=== PATIENT | male | born 1970 | race African-American/Black ===

== ENCOUNTER 2019-04-04 20:53 | Inpatient (IN) | payer OTHER ==
[2019-04-04 21:28] LABS: ADD MAN DIFF? NO
[2019-04-04 21:30] LABS: WHITE BLOOD COUNT 6.6 10^3/ul (4.8-10.8)
[2019-04-04 21:30] LABS: ABNORMAL IP MESSAGE 1; BASOPHIL # 0.1 10^3/ul (0.0-0.1); BASOPHILS % 1.1 % (0.0-2.0); EOSINOPHILS % 0.3 % (0.0-7.0); HEMATOCRIT 53.1 % (42.0-52.0); HEMOGLOBIN 18.9 g/dl (14.0-18.0); LYMPHOCYTES # 1.6 10^3/ul (0.8-2.9); LYMPHOCYTES % 24.3 % (15.0-51.0); MEAN CORPUSCULAR HEMOGLOBIN 29.8 pg (29.0-33.0); MEAN CORPUSCULAR HGB CONC 35.6 g/dl (32.0-37.0); MEAN CORPUSCULAR VOLUME 83.6 fl (82.0-101.0); MEAN PLATELET VOLUME 10.2 fl (7.4-10.4); MONOCYTE # 1.5 10^3/ul (0.3-0.9); MONOCYTES % 23.1 % (0.0-11.0); NEUTROPHIL # 3.4 10^3/ul (1.6-7.5); NEUTROPHILS % 50.9 % (39.0-77.0); PLATELET COUNT 274 10^3/UL (140-415); POSITIVE DIFF @See below; RED BLOOD COUNT 6.35 10^6/ul (4.70-6.10); RED CELL DISTRIBUTION WIDTH 11.9 % (11.5-14.5)
[2019-04-04] MEDS: SODIUM CHLORIDE 0.9% 1L BAG IV* (21:43)
[2019-04-04] MEDS: ONDANSETRON 4 MG INJ IV (21:43)
[2019-04-04 21:50] LABS: INR 0.99; PROTIME 13.2 Sec (11.9-14.9)
[2019-04-04 21:51] LABS: PARTIAL THROMBOPLASTIN TIME 24.7 Sec (23.0-35.0)
[2019-04-04 21:58] LABS: ALANINE AMINOTRANSFERASE 56 IU/L (13-69); ALBUMIN 4.7 g/dl (3.3-4.9); ALKALINE PHOSPHATASE 72 IU/L (42-121); ANION GAP 14 (5-13); ASPARTATE AMINO TRANSFERASE 40 IU/L (15-46); BILIRUBIN,INDIRECT 1.6 mg/dl (0-1.1); BILIRUBIN,TOTAL 1.6 mg/dl (0.2-1.3); BLOOD UREA NITROGEN 20 mg/dl (7-20); CALCIUM 9.4 mg/dl (8.4-10.2); CARBON DIOXIDE 24 mmol/L (21-31); CHLORIDE 97 mmol/L (97-110); CREATININE 1.66 mg/dl (0.61-1.24); Estimated GFR 45 mL/min (>60); GLUCOSE 167 mg/dl (70-220); POTASSIUM 3.9 mmol/L (3.5-5.1); SODIUM 135 mmol/L (135-144); TOTAL PROTEIN 8.6 g/dl (6.1-8.1)
[2019-04-04] MEDS: PIPER-TAZO 3.375 GM IV (PMX) 100 ML IVPB (21:58)
[2019-04-04 22:07] LABS: TROPONIN-I < 0.012 ng/ml (0.000-0.120)
[2019-04-04] MEDS ORDERED: ACETAMINOPHEN 650 MG SUPP PR (23:30)
[2019-04-04] MEDS ORDERED: NACL 0.9% 3 ML SYG IV (23:30)
[2019-04-04] MEDS ORDERED: ONDANSETRON 4 MG INJ IV (23:30)
[2019-04-04] MEDS ORDERED: morphine 2 MG INJ IV (23:30)
[2019-04-04 23:32] LABS: URINE PH (Dip) POC 5.5 (5.0-8.5)
[2019-04-04 23:32] LABS: URINE BLOOD (Dip) POC Trace-lysed (NEGATIVE); URINE GLUCOSE (Dip) POC Negative (NEGATIVE); URINE KETONES (Dip) POC Negative (NEGATIVE); URINE LEUKOCYTE EST (Dip) POC Negative (NEGATIVE); URINE NITRITE (Dip) POC Negative (NEGATIVE); URINE TOTAL PROTEIN POC 1+ (NEGATIVE)
[2019-04-04 23:45] LABS: ADD UMIC YES; UR ASCORBIC ACID NEGATIVE (NEGATIVE); UR BILIRUBIN (Dip) NEGATIVE (NEGATIVE); UR BLOOD (Dip) 1+ mg/dL (NEGATIVE); UR CLARITY CLEAR (CLEAR); UR COLOR AMBER (YELLOW); UR GLUCOSE (Dip) NEGATIVE (NEGATIVE); UR KETONES (Dip) NEGATIVE (NEGATIVE); UR LEUKOCYTE ESTERASE (Dip) NEGATIVE Leu/ul (NEGATIVE); UR NITRITE (Dip) NEGATIVE (NEGATIVE); UR RBC 1 /HPF (0-5); UR SPECIFIC GRAVITY (Dip) 1.015 (1.003-1.030); UR TOTAL PROTEIN (Dip) NEGATIVE (NEGATIVE); UR UROBILINOGEN (Dip) NEGATIVE (NEGATIVE); UR WBC 2 /HPF (0-5)
[2019-04-05 01:01] LABS: LACTIC ACID 1.2 mmol/L (0.5-2.0)
[2019-04-05] MEDS: SOD CHLORIDE 0.9% 1,000 ML IV ×3 (01:34→22:29)
[2019-04-05 02:41] LABS: LACTIC ACID 1.1 mmol/L (0.5-2.0)
[2019-04-05 06:00] LABS: WHITE BLOOD COUNT 5.5 10^3/ul (4.8-10.8)
[2019-04-05 06:00] LABS: HEMATOCRIT 46.7 % (42.0-52.0); HEMOGLOBIN 16.4 g/dl (14.0-18.0); MEAN CORPUSCULAR HEMOGLOBIN 29.3 pg (29.0-33.0); MEAN CORPUSCULAR HGB CONC 35.1 g/dl (32.0-37.0); MEAN CORPUSCULAR VOLUME 83.5 fl (82.0-101.0); MEAN PLATELET VOLUME 10.3 fl (7.4-10.4); PLATELET COUNT 217 10^3/UL (140-415); POSITIVE DIFF @See below; RED BLOOD COUNT 5.59 10^6/ul (4.70-6.10); RED CELL DISTRIBUTION WIDTH 12.2 % (11.5-14.5)
[2019-04-05 06:23] LABS: HEMOGLOBIN A1C 5.5 % (0-5.9)
[2019-04-05 06:24] LABS: ADD MAN DIFF? YES
[2019-04-05 06:32] LABS: ALANINE AMINOTRANSFERASE 56 IU/L (13-69); ALBUMIN 3.7 g/dl (3.3-4.9); ALBUMIN/GLOBULIN RATIO 1.08; ALKALINE PHOSPHATASE 61 IU/L (42-121); ANION GAP 13 (5-13); ASPARTATE AMINO TRANSFERASE 37 IU/L (15-46); BILIRUBIN,INDIRECT 1.5 mg/dl (0-1.1); BILIRUBIN,TOTAL 2.4 mg/dl (0.2-1.3); BLOOD UREA NITROGEN 17 mg/dl (7-20); CARBON DIOXIDE 21 mmol/L (21-31); CHLORIDE 106 mmol/L (97-110); CREATININE 1.28 mg/dl (0.61-1.24); Estimated GFR > 60 mL/min (>60); GLUCOSE 115 mg/dl (70-220); POTASSIUM 3.5 mmol/L (3.5-5.1); SODIUM 140 mmol/L (135-144); TOTAL PROTEIN 7.1 g/dl (6.1-8.1)
[2019-04-05 09:20] LABS: OCCULT BLOOD STOOL NEGATIVE (NEGATIVE)
[2019-04-05] MEDS: FAMOTIDINE 20 MG INJ IV ×2 (10:02→20:32)
[2019-04-05] MEDS: ENOXAPARIN 30 MG/0.3 ML SYG SC (10:05)
[2019-04-05 10:23] LABS: BAND NEUTROPHILS #M 1.5 10^3/ul (0.0-0.6); BAND NEUTROPHILS % (M) 29 % (0-4); EOSINOPHILS % (M) 4 % (0-7); GIANT THROMBO% (M) 2 % (0-0); LYMPHOCYTES #M 1.4 10^3/ul (0.8-2.9); LYMPHOCYTES % (M) 26 % (15-51); MONOCYTE #M 1.4 10^3/ul (0.3-0.9); MONOCYTES % (M) 26 % (0-11); PLATELET ESTIMATE NORMAL; POLYCHROMASIA 1+ (0-0); PROMYELOCYTES % (M) 1 % (0-0); REACTIVE LYMPHOCYTES #M 0.1 10^3/ul (0.0-0.0); REACTIVE LYMPHOCYTES% (M) 3 % (0-0); SEG NEUT #M 0.6 10^3/ul (1.6-7.5); SEGMENTED NEUTROPHILS (M) % 10 % (39-77); SMUDGE%M 5 % (0-0); TEAR DROP CELLS 2+ (0-0)
[2019-04-05] MEDS: PIPER-TAZO 3.375 GM IV (PMX) 100 ML IVPB ×2 (13:22→22:29)
[2019-04-06] MEDS: PIPER-TAZO 3.375 GM IV (PMX) 100 ML IVPB ×3 (06:14→21:42)
[2019-04-06] MEDS: SOD CHLORIDE 0.9% 1,000 ML IV ×3 (07:39→20:37)
[2019-04-06 08:21] LABS: ALANINE AMINOTRANSFERASE 71 IU/L (13-69); ALBUMIN 4.1 g/dl (3.3-4.9); ALKALINE PHOSPHATASE 67 IU/L (42-121); ANION GAP 11 (5-13); ASPARTATE AMINO TRANSFERASE 47 IU/L (15-46); BILIRUBIN,INDIRECT 1.3 mg/dl (0-1.1); BILIRUBIN,TOTAL 1.4 mg/dl (0.2-1.3); BLOOD UREA NITROGEN 15 mg/dl (7-20); CALCIUM 8.7 mg/dl (8.4-10.2); CARBON DIOXIDE 24 mmol/L (21-31); CHLORIDE 102 mmol/L (97-110); CREATININE 1.39 mg/dl (0.61-1.24); Estimated GFR > 60 mL/min (>60); GLUCOSE 119 mg/dl (70-220); POTASSIUM 3.1 mmol/L (3.5-5.1); SODIUM 137 mmol/L (135-144); TOTAL PROTEIN 7.5 g/dl (6.1-8.1)
[2019-04-06] MEDS: ENOXAPARIN 30 MG/0.3 ML SYG SC (09:00)
[2019-04-06] MEDS: FAMOTIDINE 20 MG INJ IV ×2 (09:24→20:22)
[2019-04-06] MEDS: POTASSIUM CHLORIDE 20 MEQ POWDER FOR ORAL SOLN PO (20:21)
[2019-04-07] MEDS: SOD CHLORIDE 0.9% 1,000 ML IV ×2 (01:30→09:42)
[2019-04-07 05:55] LABS: ANION GAP 7 (5-13); BLOOD UREA NITROGEN 11 mg/dl (7-20); CALCIUM 8.1 mg/dl (8.4-10.2); CARBON DIOXIDE 24 mmol/L (21-31); CHLORIDE 105 mmol/L (97-110); Estimated GFR > 60 mL/min (>60); GLUCOSE 103 mg/dl (70-220); POTASSIUM 3.6 mmol/L (3.5-5.1); SODIUM 136 mmol/L (135-144)
[2019-04-07] MEDS: PIPER-TAZO 3.375 GM IV (PMX) 100 ML IVPB (06:03)
[2019-04-07] MEDS: ENOXAPARIN 30 MG/0.3 ML SYG SC (09:00)
[2019-04-07] MEDS: FAMOTIDINE 20 MG INJ IV (09:42)
== END 2019-04-07 14:45 | disposition home or self-care (01) | DRG 389 ==
LOC: PP2 23:30 → E/R 20:53
PROVIDERS: Internal Medicine
DX: K56.609 Unspecified intestinal obstruction, unspecified as to partial versus complete obstruction (principal); N17.9 Acute kidney failure, unspecified; E80.6 Other disorders of bilirubin metabolism; Z85.828 Personal history of other malignant neoplasm of skin; Z80.0 Family history of malignant neoplasm of digestive organs; Z88.0 Allergy status to penicillin
CPT/HCPCS: 36415; 71045; 74176; 74250; 76705; 76775; 80048; 80053; 81001; 81003; 82270; 83036; 83605; 84484; 85025; 85610; 85730; 87040-91; 87045; 87086; 87205; 93005; 96365; 96375; 99285-25